=== PATIENT | male | born 1975 ===

== ENCOUNTER 2023-04-24 05:41 | Day surgery (SDC) | payer OTHER ==
[~2023-04-24] VITALS: Ht 180.3 cm; Wt 80.7 kg
[~2023-04-24 05:41] MED LIST: LIPITOR20 MG PO; SINGULAIR10 MG PO; ZYRTEC10 M3 PO
== END 2023-04-24 15:30 | disposition home or self-care (01) ==
LOC: CIR.AMB 05:41
PROVIDERS: ATTEND Surgery
DX: D17.1 Benign lipomatous neoplasm of skin and subcutaneous tissue of trunk (principal); R22.2 Localized swelling, mass and lump, trunk; Z20.822 Contact with and (suspected) exposure to COVID-19; E78.5 Hyperlipidemia, unspecified